=== PATIENT | female | born 1955 | race Caucasian/White ===

== ENCOUNTER 2017-04-04 09:14 | Emergency (ER) | payer OTHER ==
--- NOTE | ~2017-04-04 | CT4 ---
STS. [facility] A Service of [facility] RADIOLOGY TEXT RESULTS PATIENT: ISAMAR BERRY LOCATION: SED : 57 UNIT #: [id number] AGE: [address]: Babar Delgadillo MD SEX: F ORDER DR: [id number] [address] [address] [id number] MR#: [id number] Acc #: [id number] NAME: ISAMAR BERRY : 1955 SEX: F STUDY DATE/TIME: 04/04/2017 11:23 UNIT: SED ROOM: STUDY DESCRIPTION: CT Abd and Pelv Wo Cont Attending Physician: Babar Delgadillo M.D. Ordering Physician: Babar Delgadillo M.D. Primary Care Physician: Alex Jenkins M.D. MEDICAL IMAGING REPORT This report is preliminary unless electronic signature is present. EXAM CT abdomen and pelvis without contrast, 04/04/2017. HISTORY 62-year-old female with right flank pain beginning [address] abdomen and pelvis, 05/07/2011. TECHNIQUE Helical scan performed through the abdomen and pelvis without IV contrast. Coronal and sagittal reformatted images. This CT exam was performed with one or more of the following radiation dose reduction techniques: automatic exposure control, adjustment of mA and/or kV according to patient size, and iterative reconstruction. FINDINGS Visualized lung bases are unremarkable. The liver, spleen, pancreas, gallbladder, and both adrenal glands are within normal limits. There is a 4-5 mm proximal right ureteral stone at the level of the L4 superior endplate. This produces mild right-sided hydroureteronephrosis and mild right perinephric inflammatory stranding. There are multiple nonobstructing right intrarenal calculi, the largest measuring 5 mm in the lower pole collecting system. Questionable punctate nonobstructing left intrarenal stone. Abdominal aorta normal in course and caliber with scattered atherosclerotic calcification. Small bowel is unremarkable without obstruction. Appendix is normal. Colon unremarkable. No free fluid or free air. Urinary bladder is unremarkable. Suspected small calcified uterine fibroids. Adnexa unremarkable. No free pelvic fluid. No acute bony STS. [facility] A Service of [facility] RADIOLOGY TEXT RESULTS PATIENT: ISAMAR BERRY LOCATION: [facility] [place] : 57 UNIT #: [id number] AGE: [address]: Babar Delgadillo MD SEX: F ORDER DR: abnormality. IMPRESSION 1. 4-5 mm proximal right ureteral stone at the level of the superior endplate L4 vertebral body. This produces mild right-sided hydroureteronephrosis and right perinephric inflammatory stranding. 2. Multiple nonobstructing right intrarenal stones, largest measuring 5 mm in the lower pole collecting system. Questionable punctate nonobstructing left intrarenal stone. 3. Normal appendix. 4. Questionable small partially calcified uterine fibroids. Dictated by... Fawad Young M.D. THIS IS AN ELECTRONICALLY VERIFIED REPORT Fawad Young M.D. at 04/05/2017 6:23 AM MALINI/thais TD: 04/04/2017 12:22 JOB #: [id number] MEDICAL IMAGING REPORT Page 1 of 1
[~2017-04-04 09:14] MED LIST: AVIANE PO; CIPRO PO; FLOMAX0.4 M1 PO; HYDROCHLOROTHIA25 MG PO; MEVACOR40 MG PO; PHENERGAN25 MG PO; POTASSIUM1 UDCAP.SA PO; TORADOL10 MG PO; VICODIN 5/1 TAB 5/50 PO
[2017-04-04] MEDS ORDERED: ALDACTAZIDE (09:21)
[2017-04-04] MEDS ORDERED: FLOMAX0.4 M1 (09:22)
[2017-04-04] MEDS ORDERED: PHENERGAN (09:22)
[2017-04-04] MEDS ORDERED: TORADOL10 MG (09:22)
[2017-04-04 11:35] LABS: URINE SOURCE CLEAN CATCH
[2017-04-04 11:38] LABS: URINE APPEARANCE CLEAR; URINE BILIRUBIN NEG (NEG); URINE BLOOD 1+ (NEG); URINE COLOR YELLOW; URINE GLUCOSE NEG (NORM); URINE KETONE 1+ (NEG); URINE LEUKOCYTE ESTERASE NEG (NEG); URINE NITRATE NEG (NEG); URINE PROTEIN TRACE (NEG); URINE UROBILINOGEN 0.2 MG/DL (NORM)
[2017-04-04 11:39] LABS: MICRO INDICATED? YES
[2017-04-04 11:46] LABS: CULTURE INDICATED? YES; URINE BACTERIA 2+ (NEG)
[2017-04-04 11:47] LABS: URINE SQUAMOUS EPITHELIAL CELL MANY /[HPF]
== END 2017-04-04 17:51 | disposition home or self-care (01) ==
LOC: SED 09:14
PROVIDERS: Emergency Medicine
DX: N13.2 Hydronephrosis with renal and ureteral calculous obstruction (principal); Z79.899 Other long term (current) drug therapy
CPT/HCPCS: 36415; 74176; 81003; 87086; 96361; 96374; 96375; 99284; J1170; J2405; J2765